=== PATIENT | male | born 1990 | race Caucasian/White ===

== ENCOUNTER 2017-01-25 08:29 | Emergency (ER) | payer OTHER ==
[2017-01-25 09:00] VITALS: BP 128/61
--- NOTE | 2017-01-25 09:15 | EDM.PDOC ---
ED HPI GENERAL MEDICAL PROBLEM - General Chief Complaint: Lower Extremity Injury/Pain Stated Complaint: LEG PAIN CAN'T WALK [id number] Time Seen by Provider: 01/25/17 09:12 Source of Information: Reports: Patient History Limitations: Reports: No Limitations - History of Present Illness Onset: Other (early this AM) Onset Date: 01/25/17 Onset Time: 01:00 Duration: Hour(s): Location: Reports: Lower Extremity, Right Quality: Reports: Ache, Throbbing Severity: Moderate Improves with: Reports: Immobilization Worsens with: Reports: Movement Context: Reports: Trauma, Other (Patient mis-stepped ) Treatments [employer]: Reports: NSAIDS Right Ankle Pain Score (Numeric/FACES): 5 - Related Data Allergies Allergy/AdvReac Type Severity Reaction Status Date / Time diphenhydramine Allergy Hives Verified 01/25/17 09:03 [From Benadryl] morphine Allergy Joint Pain Verified 01/25/17 09:03 Home Meds: Home Meds . [No Known Home Meds] 01/25/17 [History] Past Medical History - Past Surgical History HEENT Surgical History: Reports: Tonsillectomy Social & Family History - Tobacco Use Years of Tobacco use: 8 Packs/Tins Daily: 0.5 - Caffeine Use Caffeine Use: Reports: Coffee, Soda - Alcohol Use Days Per Week of Alcohol Use: 2 Number of Drinks Per Day: 6 Total Drinks Per Week: 12 - Recreational Drug Use Recreational Drug Use: No Review of Systems - Review of Systems Review Of Systems: See Below Constitutional: Reports: No Symptoms Eyes: Reports: No Symptoms Ears: Reports: No Symptoms Nose: Reports: No Symptoms Mouth/Throat: Reports: No Symptoms Respiratory: Reports: No Symptoms Cardiovascular: Reports: No Symptoms GI/Abdominal: Reports: No Symptoms Genitourinary: Reports: No Symptoms Musculoskeletal: Reports: Joint Pain, Other (right ankle) Skin: Reports: Other (Right posterior foot skin abrasion) Neurological: Reports: No Symptoms Psychiatric: Reports: No Symptoms ED EXAM, GENERAL - Physical Exam Exam: See Below Exam Limited By: No Limitations General Appearance: Alert, WD/WN, No Apparent Distress Eye Exam: Bilateral Eye: PERRL Ears: Normal External Exam Nose: Normal Inspection Throat/Mouth: Normal Inspection Neck: Normal Inspection Respiratory/Chest: No Respiratory Distress Cardiovascular: Normal Peripheral Pulses, Regular Rate, Rhythm Peripheral Pulses: 2+: Posterior Tibial (L), Posterior Tibial (R), Dorsalis Pedis (L), Dorsalis Pedis (R) GI/Abdominal: Normal Bowel Sounds Back Exam: Normal Inspection Extremities: Joint Swelling (right lateral ankle) Neurological: Alert, Oriented, CN II-XII Intact Psychiatric: Normal Affect Skin Exam: Warm, Other (right posterior foot skin abrasion) Lymphatic: No Adenopathy Course - Vital Signs Last Recorded V/S: Last Vital Signs Temp 37.0 C 01/25/17 08:59 Pulse 79 01/25/17 08:59 Resp 16 01/25/17 08:59 BP 128/61 01/25/17 08:59 Pulse Ox 97 01/25/17 08:59 - Orders/Labs/Meds Orders: Active Orders 24 hr Category Date Time Status Ankle 2V Rt [CR] Urgent Exams 01/25/17 09:05 Ordered Departure - Departure Time of Disposition: 09:45 Disposition: Home, Self-Care 01 Condition: Good Clinical Impression: High ankle sprain of right lower extremity Qualifiers: Encounter type: initial encounter Qualified Code(s): S93.431A - Sprain of tibiofibular ligament of right ankle, initial encounter - Discharge Information Instructions: Ankle Sprain, [id number] Forms: ED Department Discharge Additional Instructions: Rest Elevate and Apply Ice Pack TID for 20 mins. each time For pain try ( Ibuprofen 600mg TID w/ Food) F/U w/ PCP - My Orders Last 24 Hours: My Active Orders 01/25/17 09:05 Ankle 2V Rt [CR] Urgent - Assessment/Plan Last 24 Hours: My Active Orders 01/25/17 09:05 Ankle 2V Rt [CR] Urgent
== END 2017-01-25 10:08 | disposition home or self-care (01) ==
LOC: DL.ED 08:29
DX: S93.431A Sprain of tibiofibular ligament of right ankle, initial encounter (principal); S90.811A Abrasion, right foot, initial encounter; Z88.5 Allergy status to narcotic agent; Z88.8 Allergy status to other drugs, medicaments and biological substances; Z98.890 Other specified postprocedural states; X50.0XXA Overexertion from strenuous movement or load, initial encounter
CPT/HCPCS: 73600-RT; 99283